=== PATIENT | female | born 1965 | race African-American/Black ===

== ENCOUNTER 2016-12-28 15:48 | Emergency (ER) | payer SELFPAY ==
[2016-12-28] MEDS ORDERED: Adacel (T-DAP) 0.5 ML VIAL ONE (16:07)
--- NOTE | 2016-12-28 16:42 | RAD ---
RIGHT FOOT THREE VIEW 12/28/16 HISTORY: Helping a friend move and hit her foot on a table. Swelling. COMPARISON: None. FINDINGS: No acute fracture or malalignment is appreciated. There is a punctate radiopacity in the soft tissue s of the small toe. Moderate sized calcaneal spur. There appears to be some osseous debris in the posterior tibiotalar j oint or possibly tendinosis. IMPRESSION: 1. No acute fracture. 2. Punctate radiopacity in the soft tissues of the small toe to the proximal phalanx likely chr onic. 3. Moderate sized plantar heel spur. 4. Ossific debris in the posterior tibiotalar joint versus calcific tendinosis. POS: [facility]
--- NOTE | 2016-12-28 17:41 | ULT ---
EXAM: RIGHT LOWER EXTREMITY VENOUS ULTRASOUND WITH DOPPLER 12/28/16 HISTORY: Right leg pain and swelling, status post injury. COMPARISON: None. TECHNIQUE: Elliott scale, color flow, doppler imaging with spectral waveform analysis performed right lower extrem ity venous system. FINDINGS: There is compressibility, presence of flow, and augmentation in the common femoral vein, femoral vei n, and popliteal vein. There is flow in the greater saphenous, profunda vein, and posterior tibial v ein. IMPRESSION: No evidence of thrombus in the right lower extremity deep venous system. POS: [facility]
== END 2016-12-28 17:56 | disposition home or self-care (01) ==
LOC: NAV ERS 15:48
DX: S91.311A Laceration without foreign body, right foot, initial encounter (principal); L03.115 Cellulitis of right lower limb; F17.210 Nicotine dependence, cigarettes, uncomplicated; Z23 Encounter for immunization; W45.8XXA Other foreign body or object entering through skin, initial encounter
CPT/HCPCS: 85379; 90471; 90715